=== PATIENT | female | born 2000 | race Hispanic/Latino ===

== ENCOUNTER 2020-05-26 13:32 | Emergency (ER) | payer OTHER, SELFPAY ==
--- NOTE | ~2020-05-26 | XR_ITS ---
EXAMINATION: XR lumbar spine min 4V DATE: 05/26/2020 14:15 INDICATION: Low back pain TECHNIQUE: Anteroposterior, lateral, and bilateral oblique views of the lumbar spine, and cone-down l ateral view of the lumbosacral junction were obtained. COMPARISON: None. FINDINGS: There is no fracture, dislocation, or subluxation. The vertebral body heights, alignment, a nd intervertebral disc spaces are normal. The paravertebral soft tissues are unremarkable. The bowel gas pattern is normal. IMPRESSION: 1. No acute osseous abnormality. Reviewed, dictated and finalized at location A.
[2020-05-26 13:55] VITALS: BP 129/76; PULSE 80; RESP 16; TEMP 36.3; O2SAT 97
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
--- NOTE | 2020-05-26 14:04 | PC.NURSE ---
PT TO RADIOLOGY AT THSI TIME, WILL MEDICATE PER PROVIDER ORDER UPON RETURN.
[2020-05-26] MEDS: MECLIZINE HCL 25 MG TABLET PO (14:29)
[2020-05-26] MEDS: CYCLOBENZAPRINE HCL 10 MG TABLET PO (14:29)
[2020-05-26] MEDS: KETOROLAC (*BKC) 60 MG/2 ML VIAL IM (14:29)
[2020-05-26 15:40] VITALS: BP 116/68; PULSE 72; RESP 16; O2SAT 100
== END 2020-05-26 15:41 | disposition home or self-care (01) ==
PROVIDERS: Emergency Provider Emergency Medicine
DX: S39.012A Strain of muscle, fascia and tendon of lower back, initial encounter (principal); V43.52XA Car driver injured in collision with other type car in traffic accident, initial encounter
CPT/HCPCS: 72110; 96372; 99283; A9270; J1885

== ENCOUNTER 2021-12-29 09:13 | Emergency (ER) | payer OTHER, SELFPAY ==
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
[2021-12-29 09:28] VITALS: BP 136/86; PULSE 80; RESP 16; TEMP 36.6; O2SAT 99
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
== END 2021-12-29 10:44 | disposition home or self-care (01) ==
PROVIDERS: Emergency Provider Nurse Practitioner Family
DX: S39.012A Strain of muscle, fascia and tendon of lower back, initial encounter (principal); V53.6XXA Passenger in pick-up truck or van injured in collision with car, pick-up truck or van in traffic accident, initial encounter; S16.1XXA Strain of muscle, fascia and tendon at neck level, initial encounter
CPT/HCPCS: 72040; 72100; 99213; G0463

== ENCOUNTER 2024-06-14 21:02 | Inpatient (IN) | payer OTHER, SELFPAY ==
[2024-06-14] VITALS (36 sets, daily range): BP systolic 115–155; BP diastolic 35–86; PULSE 60–95; O2SAT 96–100
[2024-06-14] MEDS: LACTATED RINGERS 1,000 ML 150 ML IV CONT ×2 (22:39→23:35)
--- NOTE | 2024-06-14 22:56 | OBADM ---
This patient, Gudelia Bassett, admitted to the OB room OB Post 115 for observation. Patient/family oriented to hospital policies and general routines including ID bracelet, bed and alarms, visiting hours, pain management, procedures, bathroom and other care routines, personal items, smoking policy, room service/diet, and visiting hours. Patient/Family are encouraged to report perceived risks to care and to ask questions if they do not understand what they are told or what they should do.
[2024-06-14 23:01] LABS: Basophils Absolute Auto 0.1 K/mm3 (0.0-0.1); Basophils Percent Auto 0.5 % (0.2-1.2); Eosinophils Absolute Auto 0.1 K/mm3 (0-0.3); Eosinophils Percent Auto 0.7 % (0-4.4); Hematocrit 28.8 % (37.0-47.0); Hemoglobin 10.3 g/dL (12.0-15.0); Immature Granulocyte Absolute 0.05 K/mm3 (0.00-0.031); Immature Granulocyte Percent A 0.4 % (0-0.5); Lymphocytes Absolute Auto 3.87 K/mm3 (0.9-3.2); Lymphocytes Percent Auto 27.6 % (18.3-44.2); Mean Corpuscular HGB Conc 35.8 g/dl (32-36); Mean Corpuscular Hemoglobin 32.5 pg (26-34); Mean Corpuscular Volume 90.9 fl (80-100); Mean Platelet Volume 10.9 fl (7.4-10.4); Monocytes Absolute Auto 0.8 K/mm3 (0.1-0.6); Monocytes Percent Auto 5.6 % (2.6-8.5); Neutrophils Absolute Auto 9.2 K/mm3 (1.3-6.7); Neutrophils Percent Auto 65.2 % (45.5-73.1); Platelet Count Result 304 k/mm3 (150-375); Red Blood Count 3.17 M/mm3 (4.2-5.4); Red Cell Distribution Width 12.8 % (11.5-14.5)
--- NOTE | 2024-06-14 23:53 | PM.IMHP ---
H&P: HPI History of Present Illness Date/Time: 06/14/24 23:53 Chief Complaint: Vaginal bleeding Narrative: 23-year-old 1 at 22 and 6 7th weeks with placenta previa. Patient had onset of bleeding this evening [id number] prior to admission. On arrival patient with bright red vaginal bleeding. Initial blood loss on the measured pad was turned 40cc. Orders were given to observe bleeding for 1hour, type and cross, CBC, and start lactated Ringer bolus. The IV was difficult to start and was delayed. Hemoglobin came back at 10.3. After no return call I returned the call at 2:00 a.m. heidy and the patient had a total blood loss of 935cc. I informed the nurse that would come in to transfer the patient. Vital signs have remained stable. Bleeding has decreased to dark red bleeding instead of bright red bleeding but remains a slow trickle. Patient states she has a brief 10 to 15 second pain approximately every 15minutes. She denies cramping or contractions. This is the patient's 2nd bleeding episode. Her prior bleeding episode was 3 days prior. No hemoglobin was drawn for comparison. Ultrasound on that visit revealed the previa. Patient is seeing Dr. Rolan Mckinney for care. I am the covering physician for the weekend. The patient states she works for [employer] system and prefers to be transferred to [place]. As I left the room, I asked to have FHTs checked. As I was finishing H&P, RN stated she could not find FHTs. Bedside u/s done and no FM and no FHTs. Patient and partner informed. Will check cervix and determine plan. Cervix checked. Clots removed from vagina. (230 additional EBL). Cervix with placenta palpable and 3 cm. record is not available for review. Will draw labs. Patient states prior to this week her was uncomplicated. Patient states no history of abnormal Pap smears and no history of sexually transmitted diseases. Review of Systems Review of Systems: All systems reviewed & are unremarkable except as noted in HPI and below ( HPI) [facility] Past Medical History Medical History (Updated 06/15/24 @ 00:01 by Lara Aguero MD) No significant medical problems Surgical History Surgical History (Updated 06/14/24 @ 23:59 by Lara Aguero MD) No significant past surgical history Social History Social History Gender identity (if verbalized by the patient): Female Meds Home Medications and Allergies Home Medications Medication Instructions Recorded Confirmed Type ibuprofen 600 mg tablet 600 mg PO Q6H PRN pain #30 tabs 12/29/21 Rx methocarbamol 500 mg tablet 500 mg PO Q6H PRN muscle 12/29/21 Rx pain/spasm #30 tabs Allergies Allergy/AdvReac Type Severity Reaction Status Date / Time No Known Allergies Allergy Verified 12/29/21 09:19 Vital Signs Vital Signs - 24 hr 06/14/24 21:34 06/14/24 21:39 06/14/24 21:41 Pulse Rate 86 Blood Pressure 133/85 Pulse Oximetry 98 98 06/14/24 21:44 06/14/24 21:49 06/14/24 21:54 Pulse Rate Blood Pressure Pulse Oximetry 97 99 100 06/14/24 22:12 06/14/24 22:17 06/14/24 22:19 Pulse Rate 75 Blood Pressure 115/69 Pulse Oximetry 100 100 100 06/14/24 22:24 06/14/24 22:29 06/14/24 22:32 Pulse Rate 70 Blood Pressure 120/68 Pulse Oximetry 100 99 06/14/24 22:34 06/14/24 22:39 06/14/24 22:42 Pulse Rate 76 Blood Pressure 129/79 Pulse Oximetry 100 97 06/14/24 22:44 06/14/24 22:49 06/14/24 22:51 Pulse Rate 72 Blood Pressure 122/79 Pulse Oximetry 99 98 06/14/24 22:54 06/14/24 22:59 06/14/24 23:01 Pulse Rate 76 Blood Pressure 135/79 Pulse Oximetry 97 98 06/14/24 23:04 06/14/24 23:09 06/14/24 23:11 Pulse Rate 78 Blood Pressure 142/86 H Pulse Oximetry 100 99 06/14/24 23:14 06/14/24 23:19 06/14/24 23:21 Pulse Rate 79 Blood Pressure 134/79 Pulse Oximetry 100 98 06/14/24 23:24 06/14/24 23:29 06/14/24 23:31 Pulse Rate 79 Blood Pressure 135/81 Pulse Oximetry 96 99 100 06/14/24 23:36 06/14/24 23:41 06/14/24 23:46 Pulse Rate 79 Blood Pressure 144/35 H Pulse Oximetry 97 99 100 06/14/24 23:49 06/14/24 23:51 Pulse Rate 91 Blood Pressure 155/81 H Pulse Oximetry 100 Exam Const: General: comfortable, no acute distress, alert and awake Nutritional Appearance: average body habitus Resp: Effort & Inspection: normal respiratory effort GI: GI Palp: No abdominal tenderness and Yes Soft to palpation Auscultation: other ( heart tones dopplered on admission and I requested now) : External Female Exam: other ( old blood on the perineum with a small amount on her peripad) Other: RN unable to find FHTs Bedside u/s done. vertex, no FM, no FHTs H&P: Results Labs Labs: Short CBC 06/14/24 Range/Units 22:31 WBC 14.0 H (4.5-10.0) K/mm3 Hgb 10.3 L (12.0-15.0) g/dL Hct 28.8 L (37.0-47.0) % Plt Count 304 (150-375) k/mm3 Assessment and Plan Assessment and plan (1) 22 weeks gestation of : Code(s): Z3A.22 - 22 weeks gestation of Status: Acute Assessment and Plan: 22 6/7 weeks-demise (2) Placenta previa: Code(s): O44.00 - Complete placenta previa NOS or without hemorrhage, unspecified trimester Status: Acute Assessment and Plan: Reviewed option for attempting vaginal and csection at this early age. If bleeding remains at current level, will attempt vaginal . Aware likely will need blood transfusion. Will recheck in 1 hour.
[2024-06-15] VITALS (247 sets, daily range): BP systolic 105–161; BP diastolic 57–104; PULSE 73–178; RESP 14–18; TEMP 36.4–38; O2SAT 82–100; BMI 32.7
[2024-06-15] MEDS: SODIUM CHLORIDE 0.9% IV 250 ML 30 ML IV CONT (02:13)
[2024-06-15] MEDS: miSOPROStol 25 MCG TABLET 50 MCG VAGINAL (02:23)
[2024-06-15 03:28] LABS: Rapid Plasma Reagin Non-Reactive (NonReactive)
[2024-06-15 03:41] LABS: HIV 1/2 Ab P24 Ag Result Negative (Negative)
[2024-06-15 03:56] LABS: Hepatitis B Surface Antigen Negative (Negative); Rubella IgG Antibody 20.9 IU/ML
[2024-06-15] MEDS: fentaNYL CITRATE INJ (*CRX) 100 MCG/2 ML VIAL IV PUSH ×3 (04:33→07:10)
[2024-06-15] MEDS: miSOPROStol 25 MCG TABLET 50 MCG BUCCAL (06:20)
--- NOTE | 2024-06-15 06:27 | PM.OBPNVD ---
OB - PN: Subj Subjective Date/time seen: 06/15/24 06:27 Interval history: bleeding now minimal and dark contractions stronger pain controlled with Fentanyl OB - PN: Obj Data Labs 06/14/24 22:31 Labs: Laboratory Results - last 24 hr 06/14/24 06/15/24 22:31 02:44 WBC 14.0 H RBC 3.17 L Hgb 10.3 L Hct 28.8 L MCV 90.9 MCH 32.5 MCHC 35.8 RDW 12.8 Plt Count 304 MPV 10.9 H Immature Gran % (Auto) 0.4 Neut % (Auto) 65.2 Lymph % (Auto) 27.6 [place] % (Auto) 5.6 Eos % (Auto) 0.7 Baso % (Auto) 0.5 Lymph # (Auto) 3.87 H [place] # (Auto) 0.8 H Eos # (Auto) 0.1 Baso # (Auto) 0.1 Abs Immat Gran (auto) 0.05 H Absolute Neuts (auto) 9.2 H Absolute Nucleated RBC 0.000 Nucleated RBC % 0.0 RPR Non-reactive Hep Bs Antigen Negative HIV 1&2 Ab/P24 Ag 4thGn Negative Rubella IgG Antibody 20.9 Blood Type A Positive Antibody Screen Negative Crossmatch See Detail OB - PN A/P Assessment and Plan (1) 22 weeks gestation of : Code(s): Z3A.22 - 22 weeks gestation of Status: Acute Assessment and Plan: demise Induction in progress with cytotec (2) Placenta previa: Code(s): O44.00 - Complete placenta previa NOS or without hemorrhage, unspecified trimester Status: Acute Assessment and Plan: will u/s for position/cervix if needed not planning cervical checks Time Spent With Patient Time: Total time spent is greater than 50% in coordination of care (as documented) at patient's floor/unit and/or counseling patient:
--- NOTE | 2024-06-15 07:20 | PC.NURSE ---
0719: RN called Dr. Aguero to ask if she would like the demise lab panel drawn on patient. stated no extra labs are needed at this time.
[2024-06-15] MEDS: LACTATED RINGERS 1,000 ML 150 ML IV CONT (07:38)
--- NOTE | 2024-06-15 07:50 | P.PCNOB_ITS ---
OB - Vaginal Delivery Note Procedure Delivery date: 06/15/24 Events: Other (Placenta previa with hemorrhage; IUFD) Induction method: Per Misoprostol Protocol Delivery monitor: None Route of delivery: Episiotomy description: None Laceration Description: None Specimen: Yes (placenta and infant for gross examination) Quantitative Blood Loss (ml): 400 (plus 1340 from admission to delivery) Anesthesia type: None Disposition: Floor Complications: Other complications (hemorrhage) Narrative: Called to room for patient delivery. With one push, infant delivered. No cord blood able to be drawn. Placenta delivered intact with approx. 300 cc clot attached. [place] Baby Date of : 06/15/24 Gestational Age by Date: (01/11) Infant gender: Male presentation: vertex Placenta delivery description: Spontaneous score one minute: 0 score five minutes: 0
[2024-06-15] MEDS: OXYTOCIN 30 UNITS/NS 500 ML 30 UNITS/500 ML BAG 999 UNITS IV CONT (07:51)
[2024-06-15] MEDS: LACTATED RINGERS 500 ML IV CONT (07:51)
--- NOTE | 2024-06-15 07:55 | P.DS_ITS ---
DS: Admitting Diagnosis Discharge Date 06/15/24 Admitting Diagnosis vaginal bleeding previa 22 6/7 weeks DS: Discharge Diagnosis Discharge Diagnosis (1) Placenta previa: Code(s): O44.00 - Complete placenta previa NOS or without hemorrhage, unspecified trimester Status: Acute (2) IUFD at 20 weeks or more of gestation: Code(s): O36.4XX0 - Maternal care for intrauterine , not applicable or unspecified Status: Acute (3) (spontaneous vaginal delivery): Code(s): O80 - Encounter for full-term uncomplicated delivery Status: Acute OB - DS: Summary Hospital Course Hospital Course: Patient was admitted with vaginal bleeding and known marginal placenta previa. Initially had heart tones. Patient with [id number] blood loss and on next check the heart tones were absent. After significant discussions with the patient and her partner, decision was made to induce labor with Cytotec. In addition, was recommended to transfuse 2units of packed red blood cells. Patient proceeded into labor and bleeding stabilized. Patient went on to a spontaneous vaginal delivery approximately 6hours after the initiation of Cytotec. Placenta delivered spontaneously with a 300cc clot attached to the edge. OB Procedures : Ultrasound OB Procedures Intrapartum: Spontaneous Vag Delivery OB Procedures: : Transfusion (predelivery 2 units PRBC) Peripartum Data Infant Delivery Method: Natural Vaginal Laceration Description: None Episiotomy description: None complications: none Status at Discharge Functional status at discharge: independent ambulation Overall status at discharge: patient is progressing back to baseline Time Spent with Patient Time attestation: Total time spent providing and/or coordinating discharge services: DS: Data Data Completed and Pending Labs on day of discharge: Labs from last 24 hours 06/15/24 06/14/24 02:44 22:31 WBC 14.0 H RBC 3.17 L Hgb 10.3 L Hct 28.8 L MCV 90.9 MCH 32.5 MCHC 35.8 RDW 12.8 Plt Count 304 MPV 10.9 H Immature Gran % (Auto) 0.4 Neut % (Auto) 65.2 Lymph % (Auto) 27.6 [place] % (Auto) 5.6 Eos % (Auto) 0.7 Baso % (Auto) 0.5 Lymph # (Auto) 3.87 H [place] # (Auto) 0.8 H Eos # (Auto) 0.1 Baso # (Auto) 0.1 Abs Immat Gran (auto) 0.05 H Absolute Neuts (auto) 9.2 H Absolute Nucleated RBC 0.000 Nucleated RBC % 0.0 RPR Non-reactive Hep Bs Antigen Negative HIV 1&2 Ab/P24 Ag 4thGn Negative Rubella IgG Antibody 20.9 Blood Type A Positive Antibody Screen Negative Crossmatch See Detail Discharge Plan Discharge Attending physician on discharge: Rolan Mckinney Discharging Clinician: Lara Aguero Anticipated Discharge Date/Time: 06/15/24 20:01 Patient Disposition: Home, Self-Care Activity: may shower and pelvic rest Diet: regular Discharge Instructions: Follow-Up: Call your Dr. Mckinney's office on Monday for an appointment to be seen within the week. EPISIOTOMY/PERINEAL CARE: * Until bleeding stops, use your telly bottle after urinating * Change your pad frequently throughout the day * You may take sitz baths several times a day (fill your bathtub with warm water and soak for 20 minutes.) Do NOT bathe in the water * No tub baths until seen by your physician - You may shower ACTIVITY: * Rest as much as possible. * Do not exercise or lift anything heavy (such as laundry ) * Avoid stairs or driving as much as possible. * Do not put anything into the vagina. No douching, tampons, or sexual activity until seen by physician. NOTIFY PHYSICIAN IF YOU HAVE ANY QUESTIONS OR IF ANY OF THE FOLLOWING SYMPTOMS OCCUR: * If your vaginal bleeding becomes foul smelling. * If your vaginal bleeding becomes more heavy than a period or if your bleeding changes from pink to bright red. However, you may pass an occasional walnut- sized clot once or twice for the first week . * If you experience a sharp, shooting pain in you calves. * If you discover a hard, reddened area on your breast or if you experience flu- like symptoms. * Take temperature throughout the day, if temperature is over 100.[address] Moore office or [facility] and Delivery at [facility] DIET: * Eat regular, well-balanced meals. * Drink plenty of fluids daily. . Stand Alone Forms: General Discharge Information Follow-up/Referrals: Rolan Mckinney MD [Physician] - Call for Appointment Discharge Medications: Continued [id number] 1 mg Tablet 1 tablet PO DAILY Date of admission: 06/15/24 01:00 Primary Care Provider: UNKNOWN,DOCTOR Admitting Provider: Rolan Mckinney Attending physician on admission: Rolan Mckinney Condition: Stable
[2024-06-15] MEDS: OXYTOCIN 30 UNITS/NS 500 ML 30 UNITS/500 ML BAG 125 UNITS IV CONT (08:30)
--- NOTE | 2024-06-15 08:52 | PC.NURSE ---
2101 Pt arrives to unit with vaginal bleeding, reports vaginal bleeding and diagnosed placenta previa on 06/11/24. 2102 RN's at bedside, assessing bleeding and vitals, bleeding is bright red vaginal bleeding and vitals are stable. 2114 heart tones doppled at 136-140. [address] Aguero, update on pt, bleeding, and vitals. Orders received to draw CBC, Type and cross, and place pt on bed rest, will call back with labs. 0 RN at bedside, attempting IV start, additional RN called in to start IV. 2140 ornamental ironworking supervisor notified of additional help starting IV, pt requires ultrasound for IV. 2230 RN's at bedside, assessing bleeding, bright red on pads, bleeding less in quantity. 2300 Pt reports cramping. 2310 RN at bedside, evaluates additional bleeding, pads weighed. 2323 Dr. Aguero called, update on labs, QBL, and continuous bright red bleeding, coming to evaluate pt. 2330 RN at bedside, bright red bleeding, pads weighed. 2342 Dr. Aguero on unit. 2343 Dr. Aguero and RN at bedside, evaluates pt, abdomen, and bleeding. 2350 Orders to take heart tones. RN's at bedside, absent heart tones. 0001 Dr. Aguero at bedside with ultrasound, confirmed absent heart tones. 0030 Dr. Aguero at bedside, performs cervical exam 3 cm with clots, pads weighed. 0050 Pt moved from 115 to 102. 0100 ornamental ironworking supervisor and ultrasound IV certified RN at bedside initiating second IV line. 0105 RN at bedside, minimal bleeding, dark red spotting. 0134 Dr. Aguero at bedside, dark red spotting. Orders received to administer 2 units of packed red blood cells and cytotec 50 mcg every 4 hours, 100 mcg if not bravo. 0210 RN's at bedside, administering first unit of blood. [address] Aguero, update on pt, minimal dark red spotting, and pain. Orders received to administer 50-100 mcg fentanyl as needed. 0519 RN's at bedside, administering second unit of blood. 0550 RN at bedside, evaluates dark red spotting, pads weighed over last six hours. [address] Aguero on minimal bleeding, QBL, and pain. Orders received to remove toco monitor. 0604 Report given to Eunice Red RN.
--- NOTE | 2024-06-15 11:01 | PC.NURSE ---
0735: Patient in bed stating she feels like she has to push. RN called for assistance. CONRADO Heredia at bedside with CONRADO Red 0739: Dr. Aguero was called for delivery 0741: Dr. Aguero in room for delivery 0742: Fetus was delivered. 0748: Placenta was delivered. 0755: Dr. Aguero stated patient can be discharged after 1900 tonight if patient desires to be discharged. Orders to draw a CBC at 1700. Dr. Aguero wants patient to take iron from over the counter at home. 0806: Share coordinator Brisa Salgado was called. Brisa Salgado stated she will be in this morning to talk to patient. 0853: RN phoned Chaplain Booker, no answer at this time. 0858: RN called [facility] and spoke to Martita. Martita stated the fetus does not qualify for organ donation. Reference number [id number]. 0930: Patient walked to the bathroom with RN at her side Patient was able to void. Gown changed, pads changed, and bedding was changed at this time. 1026: RN phoned Oncology Technician. RN was given permission to release the remains. Cornor's office needs to be notified once patient has decided on a home. 1115: CONRADO Salgado at bedside talking with patient.
--- NOTE | 2024-06-15 11:30 | PC.NURSE ---
1110--This RN to room to introduce Share Program, discuss options for burial/cremation, feelings to expect in the coming days. Questions asked and answered at this time.
--- NOTE | 2024-06-15 14:51 | PC.NURSE ---
1451: [facility] was contacted and notified of demise. Director stated to call back once the fetus is in the morgue.
[2024-06-15] MEDS: WATER FOR IRRIGATION, STERILE 1,000 ML BOTTLE 1000 ML (14:55)
--- NOTE | 2024-06-15 16:01 | PC.NURSE ---
1600: RN phoned Dr. Aguero to inform her of patient's temperature of 100.4, patient's bleeding is minimal, patient has gotten up to go to the restroom a couple times but has been napping since, and that patient is not complaining of any pain. Orders for an incentive spirometer. Orders to not give Tylenol unless needed for pain.
--- NOTE | 2024-06-15 16:41 | PC.NURSE ---
See OBIX for patient's blood pressure, oxygen saturations, and heart rate.
--- NOTE | 2024-06-15 16:48 | PC.NURSE ---
1544: RN called Cardiology Fellow back to inform them that patient picked [facility].
[2024-06-15 17:11] LABS: Hematocrit 28.8 % (37.0-47.0); Hemoglobin 10.3 g/dL (12.0-15.0); Mean Corpuscular HGB Conc 35.8 g/dl (32-36); Mean Corpuscular Hemoglobin 31.3 pg (26-34); Mean Corpuscular Volume 87.5 fl (80-100); Mean Platelet Volume 9.9 fl (7.4-10.4); Platelet Count Result 227 k/mm3 (150-375); Red Blood Count 3.29 M/mm3 (4.2-5.4); Red Cell Distribution Width 14.3 % (11.5-14.5); White Blood Count 14.7 K/mm3 (4.5-10.0)
--- NOTE | 2024-06-15 18:18 | PC.NURSE ---
181: Report given to CONRADO Crisostomo
--- NOTE | 2024-06-15 19:45 | PC.NURSE ---
Call placed to Dr. Aguero. Pt labs, vitals, pain and bleeding reported. Pt stated she wants to go home tonight. Order to discharge pt home, pt needs to take her temperature throughout the day and call back if it is higher then 100.4, and call Dr. Mckinney office to follow up by end of the week.
--- NOTE | 2024-06-15 21:12 | PC.NURSE ---
Addendum entered by Amanda Crisostomo RN 06/15/24 21:15: 2035- Pt discharged home in stable condition. Discharge instructions explained to pt, paper copy given to pt. Pt stated understanding. All questions and concerns answered. Pt wheeled out to car with all belongings. S.O @ pt side. Baby taken to morgue per protocol. Original Note: Pt discharged home in stable condition. Discharge instructions explained to pt, paper copy given to pt. Pt stated understanding. All questions and concerns answered. Pt wheeled out to car with all belongings. S.O @ pt side. Baby taken to morgue per protocol.
== END 2024-06-15 20:35 | disposition home or self-care (01) | DRG 806 ==
PROVIDERS: Admitting Provider Obstetrics & Gynecology Gynecology; Visit Provider Obstetrics & Gynecology Gynecology
DX: O44.32 Partial placenta previa with hemorrhage, second trimester (principal); O36.4XX0 Maternal care for intrauterine death, not applicable or unspecified; Z37.1 Single stillbirth; Z3A.22 22 weeks gestation of pregnancy
CPT/HCPCS: 36415; 36430; 85025; 85027; 86592; 86703; 86762; 86850; 86900; 86901; 86923; 87340; 88307; A9270; G0432; J2590; J3010; J7120; P9016